=== PATIENT | female | born 1960 | race Caucasian/White ===

== ENCOUNTER → 2020-08-02 | Day surgery (SDC) | payer OTHER ==
[~2020-08-02] VITALS: Ht 160 cm; Wt 106.6 kg
[~2020-08-02] MED LIST: ACETAMINOPHEN500 M1 PO; ATIVAN1 MG PO; CENTRUM SILVER1 EAC4 PO; MOTRIN600 MG PO; OXY-IR 5MG5 MG PO; VIT D 3 PO
== END | disposition home or self-care (01) ==
LOC: FAS 11:09
DX: C50.911 Malignant neoplasm of unspecified site of right female breast (principal); Z17.0 Estrogen receptor positive status [ER+]; Z20.822 Contact with and (suspected) exposure to COVID-19; Z91.048 Other nonmedicinal substance allergy status
CPT/HCPCS: 71045; 76000; C1788; J0690; J1644; J2250; J2704; J3010; J7120

== ENCOUNTER 2020-08-05 22:20 | Emergency (ER) | payer OTHER ==
[2020-08-05 23:12] LABS: BILIRUBIN 2+ mg/dL (NEGATIVE); BLOOD 3+ Ery/uL (NEGATIVE); CLARITY CLOUDY (CLEAR); COLOR RED (YELLOW); GLUCOSE (U) 1+ mg/dL (NORMAL); LEUKOCYTES 3+ Leu/uL (NEGATIVE); NITRITE POSITIVE (NEGATIVE); PROTEIN 3+ mg/dL (NEGATIVE); UROBILINOGEN >=8.0 mg/dL (0.2-1.0); pH 6.5 (5.0-9.0)
[2020-08-05 23:14] LABS: URINARY RBC TNTC
[2020-08-05 23:33] LABS: BASOPHIL 0.4 % (0-2); EOSINOPHIL 0 % (0-5); HCT 39.9 % (37.0-47.0); HGB 13.4 g/dl (12.5-16.0); MCH 30.4 pg (25.0-31.0); MCHC 33.6 g/dL (32.0-36.0); MCV 90.5 fL (78.0-100.0); MONOCYTE 1.5 % (0-12); NEUTROPHIL 87.9 % (41-80); NRBC 0; PLT 171 K/uL (150-400); RBC 4.41 M/uL (4.20-5.40); RDW 13.5 % (11.5-14.0)
[2020-08-05 23:35] LABS: WBC 32.6 K/uL (4.0-10.5)
[2020-08-05 23:40] LABS: ALBUMIN 3.4 g/dL (3.4-5.0); BILIRUBIN - TOTAL 0.4 mg/dL (0.2-1.0); BUN/CREAT RATIO (CALC) 28.2 RATIO; CREATININE 0.85 mg/dL (0.51-0.95); GLOBULIN (CALCULATION) 3.6 g/dL; POTASSIUM 3.6 mmol/L (3.5-5.1); TOTAL CELL COUNT 100
[2020-08-05 23:53] LABS: BAND 5 % (0-10); LYMPHOCYTE(M) 3 % (15-48); MONOCYTE(M) 6 % (0-12); NEUTROPHILS(M) 86 % (41-80); PLATELET ESTIMATE INCREASED
[2020-08-05 23:54] LABS: PLATELET MORPHOLOGY NORMAL
[2020-08-06 00:12] LABS: LACTIC ACID 2.3 mmol/L (0.4-1.9)
== END 2020-08-06 03:15 | disposition home or self-care (01) ==
LOC: FER 22:20
PROVIDERS: Emergency Medicine Emergency Medical Services
DX: N13.6 Pyonephrosis (principal); Z85.9 Personal history of malignant neoplasm, unspecified; Z92.21 Personal history of antineoplastic chemotherapy
CPT/HCPCS: 36415; 80053; 81001; 83605; 87088; J0696; J1170; J1885; J2405; J7030